=== PATIENT | female | born 1975 | race American Indian/Alaskan Native ===

== ENCOUNTER 2016-10-14 18:37 | Emergency (ER) | payer OTHER, BC ==
[2016-10-14 20:16] VITALS: BP 135/86
[2016-10-14] MEDS ORDERED: TYLENOL ONE (20:38)
[2016-10-14] MEDS ORDERED: TYLENOL PO ONE (20:51)
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
== END 2016-10-15 04:43 | disposition home or self-care (01) ==
LOC: ED 18:37
DX: R51 Headache (principal); V89.2XXA Person injured in unspecified motor-vehicle accident, traffic, initial encounter; Y93.89 Activity, other specified; Y99.9 Unspecified external cause status; Y92.410 Unspecified street and highway as the place of occurrence of the external cause
CPT/HCPCS: 70450; 72125

== ENCOUNTER 2020-05-21 17:16 | Observation (INO) | payer BC ==
[2020-05-21] MEDS ORDERED: ONDANSETRON 4 MG/2 ML INJ IV ONE (18:57)
[2020-05-21] MEDS ORDERED: PANTOPRAZOLE 40 MG INJ IV ONE (18:57)
[2020-05-21] MEDS ORDERED: SODIUM CHLORIDE 0.9% 1000 ML 1,000 ML IV ONE (18:57)
--- NOTE | 2020-05-21 19:01 | Emergency Department Report ---
ED GI Bleed HPI - General Chief complaint: Nausea/Vomiting/Diarrhea Stated complaint: NAUSEA/WEAK Time Seen by Provider: 05/21/20 18:57 Source: patient, EMS Mode of arrival: Wheelchair Limitations: No Limitations - History of Present Illness Initial comments: Chief complaint: Stomach pain bloody stools vomiting blood HPI: This is a 44-year-old female with history of hyperthyroidism and uterine fibroids who presents with stomach upset for last week. She has had dull central abdominal pain. She has been treating the pain with BC powder and acetaminophen. Patient today began vomiting. She had bloody emesis. Her children witnessed syncopal episode at home. Children called EMS. When she arrived here in the emergency department she had dark bloody stool observed by charge nurse. Triage nurse also noticed that patient had hypotension. Systolic blood pressure 60 mmHg upon standing. No history of GI bleed. However she has had vaginal bleeding for 4 weeks. She has hysterectomy scheduled in [facility]ations: Methimazole Propranolol Methoxyprogesterone Hydroxyzine complaint: gross hematemesis, gross hematochezia -: Gradual, days(s) (1) Severity scale (0 -10): 4 Quality: dull Consistency: intermittent Improves with: none Worsens with: none Context: medication/supplement use (BC powder, acetaminophen) Associated Symptoms: abdominal pain, nausea, vomiting, syncope - Related Data Home Medications Medication Instructions Recorded Confirmed Last Taken Methimazole [Tapazole] 05/21/20 Unknown propranoloL 05/21/20 Unknown Allergies Allergy/AdvReac Type Severity Reaction Status Date / Time No Known Allergies Allergy Verified 05/21/20 17:33 ED Review of Systems ROS: Stated complaint: NAUSEA/WEAK Other details as noted in HPI Comment: All other systems reviewed and negative Constitutional: denies: fever Respiratory: denies: cough, shortness of breath Cardiovascular: syncope. denies: chest pain Gastrointestinal: abdominal pain, nausea, vomiting, hematemesis, hematochezia ED Past Medical Hx - Past Medical History Previous Medical History?: Yes Additional medical history: THYROID / FIBROID - Surgical History Additional Surgical History: TUBAL LIGATION - Social History Smoking Status: Never Smoker Substance Use Type: None - Medications Home Medications: Home Medications Medication Instructions Recorded Confirmed Last Taken Type Methimazole [Tapazole] 05/21/20 Unknown History propranoloL 05/21/20 Unknown History ED Physical Exam - General Limitations: No Limitations General appearance: alert, in no apparent distress - Head Head exam: Present: atraumatic, normocephalic - Eye Eye exam: Present: normal appearance - ENT ENT exam: Present: mucous membranes moist - Neck Neck exam: Present: normal inspection, full ROM - Respiratory Respiratory exam: Present: normal lung sounds bilaterally. Absent: respiratory distress, wheezes, rales, rhonchi - Cardiovascular Cardiovascular Exam: Present: regular rate, normal rhythm, normal heart sounds. Absent: systolic murmur, diastolic murmur, rubs, gallop - GI/Abdominal GI/Abdominal exam: Present: soft, normal bowel sounds. Absent: distended, tenderness, guarding, rebound - Rectal Rectal exam: Present: heme (+) stool, other - Extremities Exam Extremities exam: Present: normal inspection - Neurological Exam Neurological exam: Present: alert, oriented X3 - Psychiatric Psychiatric exam: Present: normal affect, normal mood - Skin Skin exam: Present: warm, dry, intact, normal color. Absent: rash ED Course Vital Signs 05/21/20 05/21/20 05/21/20 17:36 18:18 18:49 Temperature 98.5 F 98.1 F Pulse Rate 83 91 H Respiratory 18 16 Rate Blood Pressure 97/70 Blood Pressure 75/51 [Right] O2 Sat by Pulse 100 100 96 Oximetry 05/21/20 05/21/20 05/21/20 19:00 19:30 20:00 Temperature Pulse Rate 75 81 69 Respiratory 17 18 12 Rate Blood Pressure 103/67 108/68 106/64 Blood Pressure [Right] O2 Sat by Pulse 91 100 82 L Oximetry 05/21/20 05/21/20 05/21/20 20:31 21:01 21:30 Temperature Pulse Rate 73 89 76 Respiratory 13 28 H 15 Rate Blood Pressure 106/64 106/64 105/63 Blood Pressure [Right] O2 Sat by Pulse 100 100 Oximetry 05/21/20 22:04 Temperature 98.7 F Pulse Rate 83 Respiratory 17 Rate Blood Pressure 105/63 Blood Pressure [Right] O2 Sat by Pulse 95 Oximetry ED Medical Decision Making - Lab Data Result diagrams: 05/21/20 19:13 05/21/20 19:13 - Medical Decision Making Clinical impression: Upper GI bleed with history of hematemesis. Melena on exam. Patient states that her normal hemoglobin is 11. Hemoglobin today is 7. Protonix bolus and infusion initiated in the emergency department. After consulting Dr. Sewell gastroenterology on-call, he recommended IV Reglan to be given now. He will arrange for emergent EGD. Dr. Sewell performed emergent EGD in the emergency department. He visualized several gastric ulcers and one large ulcer at the duodenal bulb. Fortunately he did not have to intervene on the lesions. Patient will be admitted to telemetry hospitalist service. Critical Care Time: Yes Critical care time in (mins) excluding proc time.: 50 Critical care attestation.: If time is entered above; I have spent that time in minutes in the direct care of this critically ill patient, excluding procedure time. 50 minutes of critical care time excluding procedures were used in the care of the patient. I came immediately to the bedside upon patient's arrival. Charge nurse came to me personally regarding patient's presentation. Patient had hy potension as well as orthostasis. I was concerned for hemorrhagic shock. I discussed treatment plan with the nursing team members. I reviewed electronic record. I kept the family members informed. Patient required multiple interventions and reassessments. I spoke with multiple consultants regarding her care including counter top assembler, geophysics teacher and hospitalist. ED Disposition Clinical Impression: Acute upper GI bleed, Peptic ulcer disease, Melena, Hematemesis, Anemia associated with acute blood loss, Orthostatic hypotension Disposition: OP ADMIT IP TO THIS HOSP Is pt being admited?: Yes Does the pt Need Aspirin: No Condition: Fair
[2020-05-21 19:40] LABS: Basophils # (Auto) 0.1 K/mm3 (0.0-0.1); Basophils % (Auto) 1.2 % (0.0-1.8); Eosinophils # (Auto) 0.1 K/mm3 (0.0-0.4); Eosinophils % (Auto) 1.1 % (0.0-4.3); Hematocrit 22.3 % (30.3-42.9); Lymphocytes # (Auto) 1.5 K/mm3 (1.2-5.4); Lymphocytes % (Auto) 18.6 % (13.4-35.0); Mean Corpuscular HGB Conc 31 % (30-34); Mean Corpuscular Volume 65 fl (79-97); Monocytes # (Auto) 0.4 K/mm3 (0.0-0.8); Platelet Count 281 K/mm3 (140-440); Red Blood Count 3.42 M/mm3 (3.65-5.03); Red Cell Distribution Width 20.8 % (13.2-15.2)
[2020-05-21 19:48] LABS: Alanine Aminotransferase 10 units/L (7-56); Albumin 3.9 g/dL (3.9-5); Blood Urea Nitrogen 23 mg/dL (7-17); Calcium 8.6 mg/dL (8.4-10.2); Hemolysis Index 0
[2020-05-21 19:51] LABS: BUN/Creatinine Ratio 46
[2020-05-21] MEDS ORDERED: METOCLOPRAMIDE 10 MG/2 ML INJ IV ONE (20:28)
--- NOTE | 2020-05-21 20:55 | Anesthesia Consultation ---
Anesthesia Consult and Med Hx Date of service: 05/21/20 - Airway Anesthetic Teeth Evaluation: Good ROM Head & Neck: Adequate Mental/Hyoid Distance: Adequate Mallampati Class: Class II Intubation Access Assessment: Probably Good - Pre-Operative Health Status ASA Pre-Surgery Classification: ASA3, Emergency - Pulmonary Hx Smoking: No Hx Asthma: No Hx Respiratory Symptoms: No SOB: No COPD: No Home Oxygen Therapy: No Hx Pneumonia: No Hx Sleep Apnea: No - Cardiovascular System Hx Hypertension: Yes Hx Coronary Artery Disease: No Hx Heart Attack/AMI: No Hx Angina: No Hx Percutaneous Transluminal Coronary Angioplasty (PTCA): No Hx Cardia Arrhythmia: Yes (States "I dont know which arrhythmia") Hx Pacemaker: No Hx Internal Defibrillator: No Hx Valvular Heart Disease: No Hx Heart Murmur: No Hx Peripheral Vascular Disease: No - Central Nervous System Hx Neuromuscular Disorder: No Hx Seizures: No CVA: No Hx Back Pain: No Hx Psychiatric Problems: Yes (anexity) - Gastrointestinal Hx Ulcer: Yes Hx Gastroesophageal Reflux Disease: Yes - Endocrine Hx Renal Disease: No Hx End Stage Renal Disease: No Hx Cirrhosis: No Hx Liver Disease: No Hx Insulin Dependent Diabetes: No Hx Non-Insulin Dependent Diabetes: No Hx Thyroid Disease: No Hx Hypothyroidism: No Hx Hyperthyroidism: Yes - Hematic Hx Anemia: Yes Hx Sickle Cell Disease: No - Other Systems Hx Alcohol Use: Yes (occ.) Hx Substance Use: No Hx Cancer: No Hx Obesity: No
--- NOTE | 2020-05-21 20:58 | Anesthesia Day of Surgery ---
Anesthesia Day of Surgery - Day of Surgery Patient Examined: Yes Patient H&P Reviewed: Yes Patient is NPO: Yes
[2020-05-21] MEDS: PANTOPRAZOLE 80 MG in SODIUM CHLORIDE 0.9% 100 ML IV SCH (21:16)
[2020-05-21] MEDS ORDERED: SODIUM CHLORIDE 0.9% 1000 ML 1,000 ML IV SCH (21:30)
[2020-05-21] MEDS ORDERED: WATER FOR IRRIG STERILE 250 ML BOTTLE IR ONE (21:34)
--- NOTE | 2020-05-21 21:58 | Gastroenterology Consultation ---
History of Present Illness - Reason for Consult Consult date: 05/21/20 GI bleed Requesting physician: HENRY PARSONS - History of Present Illness Pleasant 44 yo female presents with hematemesis and melena and orthostatic near syncope Patient reports for last week she has been having epigastric abdominal pain the pain is moderate intermittent cramping worse with eating better with Goody powder which she only started taking after she developed the abdominal pain She reports after eating yesterday she felt sick in her stomach and forces soft throughout there was some retching involved Then she reports today having multiple episodes of hematemesis as well as a lar ge melanotic bowel movement. She reports she then came to the emergency room when they transferred her from the bed to a chair she became very lightheaded and almost passed out She is on beta-blockers She does not take blood thinners No personal or family history of gastric ulcers Her daughter is currently 2 doors down in the ER with pseudoseizures, patient reports excessive stress from this as it is been going on for years Obtained/updated/reviewed patient's current medications Past History Past Medical History: other (fibroids, hyperthyroidism) Past Surgical History: No surgical history, Other (tubal ligation) Social history: no significant social history Family history: no significant family history (no known FH gastric ulcer of CA, no FH CRC) Medications and Allergies Allergies Allergy/AdvReac Type Severity Reaction Status Date / Time No Known Allergies Allergy Verified 05/21/20 17:33 Home Medications Medication Instructions Recorded Confirmed Last Taken Type Methimazole [Tapazole] 05/21/20 Unknown History propranoloL 05/21/20 Unknown History Active Meds: Active Medications Pantoprazole Sodium 80 mg/ (Sodium Chloride) 100 mls @ 10 mls/hr IV DIRECT RAJENDRA Last Admin: 05/21/20 21:16 Dose: 8 mg/hr, 10 mls/hr Documented by: Sodium Chloride (Nacl 0.9% 1000 Ml) 1,000 mls @ 50 mls/hr IV DIRECT RAJENDRA Review of Systems - Review of Systems All systems: negative (10 systems reviewed and negative except as mentioned in the HPI) Exam - Constitutional Vital Signs: Temp Pulse Resp BP Pulse Ox 98.1 F 76 15 105/63 100 05/21/20 18:18 05/21/20 21:30 05/21/20 21:30 05/21/20 21:30 05/21/20 21:01 General appearance: no acute distress - EENT Eyes: EOM intact ENT: hearing intact - Neck Neck: supple - Respiratory Respiratory effort: normal - Cardiovascular Rhythm: regular - Gastrointestinal General gastrointestinal: Present: soft - Integumentary Integumentary: Present: dry - Musculoskeletal Musculoskeletal: normal - Neurologic Neurological: alert and oriented x3 - Psychiatric Psychiatric: appropriate mood/affect - Labs CBC & Chem 7: 05/21/20 19:13 05/21/20 19:13 Lab Results: Laboratory Results - last 24 hr 05/21/20 05/21/20 05/21/20 19:13 19:13 19:13 WBC 8.3 RBC 3.42 L Hgb 7.0 L Hct 22.3 L MCV 65 L MCH 20 L MCHC 31 RDW 20.8 H Plt Count 281 Lymph % (Auto) 18.6 [place] % (Auto) 5.0 Eos % (Auto) 1.1 Baso % (Auto) 1.2 Lymph # (Auto) 1.5 [place] # (Auto) 0.4 Eos # (Auto) 0.1 Baso # (Auto) 0.1 Seg Neutrophils % 74.1 H Seg Neutrophils # 6.1 Sodium 135 L Potassium 4.3 Chloride 103.3 Carbon Dioxide 21 L Anion Gap 15 BUN 23 H Creatinine 0.5 L Estimated GFR > 60 BUN/Creatinine Ratio 46 Glucose 124 H Calcium 8.6 Total Bilirubin 0.20 AST 16 ALT 10 Alkaline Phosphatase 90 Total Protein 7.2 Albumin 3.9 Albumin/Globulin Ratio 1.2 Lipase 31 HCG, Qual Negative Blood Type Antibody Screen 05/21/20 20:15 WBC RBC Hgb Hct MCV MCH MCHC RDW Plt Count Lymph % (Auto) [place] % (Auto) Eos % (Auto) Baso % (Auto) Lymph # (Auto) [place] # (Auto) Eos # (Auto) Baso # (Auto) Seg Neutrophils % Seg Neutrophils # Sodium Potassium Chloride Carbon Dioxide Anion Gap BUN Creatinine Estimated GFR BUN/Creatinine Ratio Glucose Calcium Total Bilirubin AST ALT Alkaline Phosphatase Total Protein Albumin Albumin/Globulin Ratio Lipase HCG, Qual Blood Type O POSITIVE Antibody Screen Negative Assessment and Plan Highest on the differential diagnosis is UGI bleed due to PUD followed by Andreina - Mendez, AVM, Dieulafoy's,etc Patient with hemodynamic instability (significant orthostatic hypotension), major drop in Hgb, overt hematemesis and melena, elevated BUN, all concerning for active GI bleed. Therefore will proceed with emergent EGD for further management. In meantime Protonix bolus and drip, reglan IV x 1 dose to enhance visualization of the stomach - Patient Problems (1) Melena Current Visit: Yes Status: Acute (2) Hematemesis Current Visit: Yes Status: Acute (3) Anemia associated with acute blood loss Current Visit: Yes Status: Acute (4) Orthostatic hypotension Current Visit: Yes Status: Acute (5) Acute upper GI bleed Current Visit: Yes Status: Acute
[2020-05-21] MEDS ORDERED: propofoL 200 MG/20 ML VIAL IV ONE ×2 (22:10)
--- NOTE | 2020-05-21 22:47 | Operative Report ---
Operative Report Operative Report: DOS: 05/21/2020 SURGEON: Bernardino Sewell MD EGD REPORT PREOPERATIVE DIAGNOSIS and POSTOPERATIVE DIAGNOSIS: GI bleed ESTIMATED BLOOD LOSS: None DESCRIPTION OF PROCEDURE: A high-resolution EGD scope was passed through the oropharynx, esophagus, stomach, and second portion of duodenum. The scope was carefully withdrawn. Retroflexion was performed in the stomach. At the end of the procedure, the scope was cleaned using normal technique. Vital signs monitored continuously throughout. SEDATION: Provided by Anesthesiology Services. COMPLICATIONS: None. FINDINGS: * Normal second portion of the duodenum * Large 1 cm ulcer in the anterior portion of the duodenal bulb, red pigmented spot however no high risk stigmata seen. No active bleeding * 3 very small superficial clean-based gastric ulcers in the prepyloric antrum * Mild gastritis in the entire stomach with mild diffuse erythema * 2 cm hiatal hernia * GE junction 35 cm from incisors * Remainder of exam was otherwise unremarkable RECOMMENDATIONS: * Clear liquid diet and advance as tolerated starting tomorrow * Repeat hemoglobin now and tomorrow morning, transfuse as needed for goal hemoglobin of 7 * Continue PPI drip until Friday at which point patient can be discharged with Protonix 40 mg p.o. twice daily as long as no further bleeding occurs * Avoid NSAIDs * Patient will need to follow-up as an outpatient for H. pylori testing and consideration of repeat EGD to ensure healing of the ulcers
[2020-05-21] MEDS ORDERED: ONDANSETRON 4 MG/2 ML INJ IV PRN (23:13)
[2020-05-21] MEDS ORDERED: MORPHINE 2 MG/1 ML INJ IV PRN (23:13)
--- NOTE | 2020-05-21 23:21 | History and Physical Report ---
History of Present Illness Date of examination: 05/21/20 Date of admission: 05/21/2020 Chief complaint: Nausea and Vomiting Hematemesis Syncope History of present illness: 44-year-old -Finnish female with known history of uterine fibroid and hypothyroidism presenting to the emergency room today complaining of nausea and vomiting, hematemesis and melena for about 1 week. Patient also indicates that she has been having some upper abdominal pain for about a week she has been using some Goody powder and acetaminophen for the pain. She has been having multiple episodes of nausea and vomiting today and was said to have had a syncopal episode at home. She indicates she just returned from [place] within the last 24 hours and denies any sick contacts, no contact with anyone with COVID-19. She has been having some melena and she also indicates that she has been having some vaginal bleeding for some time for which she is scheduled for hysterectomy sometime in a couple of weeks at [facility]. Upon arrival in the emergency room today she was found to be hypotensive with systolic blood pressure in the 60s. She was also found to be orthostatic. Patient was given IV fluid with significant improvement. Work-up in the emergency room today reveals a hemoglobin of 7.0. In House Counsel Dr. Sewell has been consulted patient will be immediately scheduled for EGD. Patient has also been commenced on proton pump inhibitor. Blood transfusion not recommended at this time. However CBC is being monitored. Past History Past Medical History: anemia, other (fibroids, hyperthyroidism) Past Surgical History: No surgical history, Other (tubal ligation) Social history: no significant social history (Occasional alcohol), alcohol abuse Family history: cancer (Pnceatic Ca. in Grand father), diabetes (Mother), hypertension (mother), other (H/O seizures in Mother) Medications and Allergies Allergies Allergy/AdvReac Type Severity Reaction Status Date / Time No Known Allergies Allergy Verified 05/21/20 17:33 Home Medications Medication Instructions Recorded Confirmed Last Taken Type Methimazole [Tapazole] 10 mg PO DAILY 05/21/20 05/22/20 Unknown History propranoloL [Inderal] 40 mg PO DAILY 05/21/20 05/22/20 Unknown History Active Meds: Active Medications Pantoprazole Sodium 80 mg/ (Sodium Chloride) 100 mls @ 10 mls/hr IV DIRECT RAJENDRA Last Admin: 05/21/20 21:16 Dose: 8 mg/hr, 10 mls/hr Documented by: Sodium Chloride (Nacl 0.9% 1000 Ml) 1,000 mls @ 50 mls/hr IV DIRECT RAJENDRA Review of Systems Constitutional: no fever, no chills Ears, nose, mouth and throat: no nasal congestion, no sore throat Cardiovascular: no chest pain, no palpitations Respiratory: no cough, no shortness of breath Gastrointestinal: abdominal pain, nausea, vomiting, hematemesis, melena, no diarrhea Genitourinary Female: no pelvic pain, no flank pain, no dysuria, no hematuria Musculoskeletal: no neck pain, no low back pain Integumentary: no rash, no pruritis Neurological: syncope, no headaches, no confusion Psychiatric: no anxiety, no depression Exam - Constitutional Vitals: Temp Pulse Resp BP Pulse Ox 98.7 F 112 H 21 114/62 100 05/21/20 22:04 05/21/20 22:30 05/21/20 22:30 05/21/20 22:30 05/21/20 22:30 General appearance: Present: no acute distress, well-nourished, other (Moderately pale) - EENT Eyes: Present: PERRL, EOM intact. Absent: scleral icterus ENT: hearing intact, clear oral mucosa, dentition normal - Neck Neck: Present: supple, normal ROM - Respiratory Respiratory effort: normal Respiratory: bilateral: CTA - Cardiovascular Rhythm: regular Heart Sounds: Present: S1 & S2. Absent: gallop, systolic murmur, diastolic murmur, rub - Extremities Extremities: no ischemia, pulses intact, pulses symmetrical, No edema, Full ROM Peripheral Pulses: within normal limits - Abdominal General gastrointestinal: Present: soft, non-tender, non-distended, normal bowel sounds, mass (Uterine Mass ) - Integumentary Integumentary: Present: clear, warm, dry. Absent: rash - Musculoskeletal Musculoskeletal: strength equal bilaterally - Psychiatric Psychiatric: appropriate mood/affect, intact judgment & insight, memory intact, cooperative - Neurologic Neurologic: CNII-XII intact, no focal deficits, moves all extremities Results - Labs CBC & Chem 7: 05/21/20 23:04 05/21/20 19:13 Labs: Abnormal lab results 05/21/20 05/21/20 Range/Units 19:13 19:13 RBC 3.42 L (3.65-5.03) M/mm3 Hgb 7.0 L (10.1-14.3) gm/dl Hct 22.3 L (30.3-42.9) % MCV 65 L (79-97) fl MCH 20 L (28-32) pg RDW 20.8 H (13.2-15.2) % Seg Neutrophils % 74.1 H (40.0-70.0) % Sodium 135 L (137-145) mmol/L Carbon Dioxide 21 L (22-30) mmol/L BUN 23 H (7-17) mg/dL Creatinine 0.5 L (0.6-1.2) mg/dL Glucose 124 H (65-100) mg/dL Assessment and Plan - Patient Problems (1) Acute upper GI bleed Current Visit: Yes Status: Acute Plan to address problem: EGD done by automotive wholesale parts advisor reveals gastric ulcers. Patient placed on proton pump inhibitor. (2) Anemia associated with acute blood loss Current Visit: Yes Status: Acute Plan to address problem: Will monitor CBC and patient will be transfused as needed. (3) Hypotension Current Visit: Yes Status: Acute Plan to address problem: Possibly secondary to volume loss. We will monitor vital signs closely. (4) DVT prophylaxis Current Visit: Yes Status: Acute Plan to address problem: Patient placed on sequential compression device. (5) Full code status Current Visit: Yes Status: Acute
[2020-05-21 23:38] LABS: Hematocrit 20.8 % (30.3-42.9); Hemoglobin 6.2 gm/dl (10.1-14.3)
[2020-05-22] MEDS: SODIUM CHLORIDE 0.9% 1000 ML 1,000 ML IV SCH ×2 (02:40→12:50)
[2020-05-22] MEDS ORDERED: SODIUM CHLORIDE 0.9% 500 ML 500 ML IV ONE (04:04)
[2020-05-22 05:27] LABS: Mean Corpuscular HGB Conc 31 % (30-34); Platelet Count 200 K/mm3 (140-440); Red Blood Count 2.88 M/mm3 (3.65-5.03)
[2020-05-22 05:30] LABS: Mean Corpuscular Volume 65 fl (79-97); Red Cell Distribution Width 20.5 % (13.2-15.2)
[2020-05-22 05:31] LABS: Basophils % (Auto) 0.7 % (0.0-1.8); Eosinophils # (Auto) 0.1 K/mm3 (0.0-0.4); Eosinophils % (Auto) 1.3 % (0.0-4.3); Lymphocytes # (Auto) 2.2 K/mm3 (1.2-5.4); Monocytes # (Auto) 0.5 K/mm3 (0.0-0.8); Monocytes % (Auto) 7.2 % (0.0-7.3)
[2020-05-22 05:34] LABS: Hematocrit 18.8 % (30.3-42.9); Hemoglobin 5.8 gm/dl (10.1-14.3)
[2020-05-22 05:38] LABS: INR 1.12 (0.87-1.13)
[2020-05-22 05:48] LABS: Blood Urea Nitrogen 20 mg/dL (7-17); Calcium 8.2 mg/dL (8.4-10.2); Hemolysis Index 0
[2020-05-22 06:05] LABS: BUN/Creatinine Ratio 40
--- NOTE | 2020-05-22 11:19 | Gastroenterology Progress Note ---
Assessment and Plan Patient without any overt clinical bleeding since the upper endoscopy last night. Hemoglobin did drop, suspect it was equilibration rather than evidence of new bleeding. Therefore, continue Protonix drip through tomorrow, start patient on clear liquid diet and advance as tolerated, transfuse for goal hemoglobin of 7. Long-term avoidance of NSAIDs On discharge patient should go home with Protonix 40 mg p.o. twice daily and outpatient follow-up with me in 2 to 4 weeks - Patient Problems (1) Melena Current Visit: Yes Status: Acute (2) Hematemesis Current Visit: Yes Status: Acute (3) Anemia associated with acute blood loss Current Visit: Yes Status: Acute (4) Orthostatic hypotension Current Visit: Yes Status: Acute (5) Acute upper GI bleed Current Visit: Yes Status: Acute Subjective Date of service: 05/22/20 Principal diagnosis: GI bleed Objective - Constitutional Vitals: Temp Pulse Resp BP Pulse Ox 97.4 F L 82 20 105/65 99 05/22/20 09:53 05/22/20 09:53 05/22/20 09:53 05/22/20 09:53 05/22/20 09:53 General appearance: no acute distress - EENT Eyes: EOM intact ENT: hearing intact - Respiratory Respiratory effort: normal - Gastrointestinal General gastrointestinal: Present: soft, non-tender - Labs CBC & Chem 7: 05/22/20 05:10 05/22/20 05:10 Labs: Laboratory Results - last 24 hr 05/21/20 05/21/20 05/21/20 19:13 19:13 19:13 WBC 8.3 RBC 3.42 L Hgb 7.0 L Hct 22.3 L MCV 65 L MCH 20 L MCHC 31 RDW 20.8 H Plt Count 281 Lymph % (Auto) 18.6 [place] % (Auto) 5.0 Eos % (Auto) 1.1 Baso % (Auto) 1.2 Lymph # (Auto) 1.5 [place] # (Auto) 0.4 Eos # (Auto) 0.1 Baso # (Auto) 0.1 Seg Neutrophils % 74.1 H Seg Neutrophils # 6.1 PT INR Sodium 135 L Potassium 4.3 Chloride 103.3 Carbon Dioxide 21 L Anion Gap 15 BUN 23 H Creatinine 0.5 L Estimated GFR > 60 BUN/Creatinine Ratio 46 Glucose 124 H Calcium 8.6 Total Bilirubin 0.20 AST 16 ALT 10 Alkaline Phosphatase 90 Total Protein 7.2 Albumin 3.9 Albumin/Globulin Ratio 1.2 Lipase 31 HCG, Qual Negative Blood Type Antibody Screen Crossmatch 05/21/20 05/21/20 05/22/20 20:15 23:04 05:10 WBC 6.2 RBC 2.88 L Hgb 6.2 L 5.8 L* Hct 20.8 L 18.8 L* MCV 65 L MCH 20 L MCHC 31 RDW 20.5 H Plt Count 200 Lymph % (Auto) 36.0 H [place] % (Auto) 7.2 Eos % (Auto) 1.3 Baso % (Auto) 0.7 Lymph # (Auto) 2.2 [place] # (Auto) 0.5 Eos # (Auto) 0.1 Baso # (Auto) 0.0 Seg Neutrophils % 54.8 Seg Neutrophils # 3.4 PT INR Sodium Potassium Chloride Carbon Dioxide Anion Gap BUN Creatinine Estimated GFR BUN/Creatinine Ratio Glucose Calcium Total Bilirubin AST ALT Alkaline Phosphatase Total Protein Albumin Albumin/Globulin Ratio Lipase HCG, Qual Blood Type O POSITIVE Antibody Screen Negative Crossmatch See Detail 05/22/20 05/22/20 05:10 05:10 WBC RBC Hgb Hct MCV MCH MCHC RDW Plt Count Lymph % (Auto) [place] % (Auto) Eos % (Auto) Baso % (Auto) Lymph # (Auto) [place] # (Auto) Eos # (Auto) Baso # (Auto) Seg Neutrophils % Seg Neutrophils # PT 14.6 INR 1.12 Sodium 141 Potassium 3.9 Chloride 110.3 H Carbon Dioxide 21 L Anion Gap 14 BUN 20 H Creatinine 0.5 L Estimated GFR > 60 BUN/Creatinine Ratio 40 Glucose 96 Calcium 8.2 L Total Bilirubin AST ALT Alkaline Phosphatase Total Protein Albumin Albumin/Globulin Ratio Lipase HCG, Qual Blood Type Antibody Screen Crossmatch
[2020-05-22] MEDS: PANTOPRAZOLE 80 MG in SODIUM CHLORIDE 0.9% 100 ML IV SCH (12:49)
[2020-05-22] MEDS ORDERED: SODIUM CHLORIDE 0.9% 500 ML 500 ML IV NR (15:35)
--- NOTE | 2020-05-22 15:39 | Progress Note ---
Assessment and Plan - Patient Problems (1) Acute upper GI bleed Current Visit: Yes Status: Acute Plan to address problem: EGD done by director of occupational therapy reveals gastric ulcers. Patient placed on proton pump inhibitor. Patient to be transfused 2 units of packed red blood cells Continue Protonix drip If stable discharge tomorrow (2) Anemia associated with acute blood loss Current Visit: Yes Status: Acute Plan to address problem: Will monitor CBC and patient will be transfused as needed. Transfuse as necessary Transfused 2 units of packed red blood cells (3) Hypotension Current Visit: Yes Status: Acute Plan to address problem: Possibly secondary to volume loss. We will monitor vital signs closely. Hypotension improved (4) DVT prophylaxis Current Visit: Yes Status: Acute Plan to address problem: Patient placed on sequential compression device. (5) Full code status Current Visit: Yes Status: Acute Discharge planning issues Patient will discharge tomorrow if no further bleeding and hemoglobin is stable Patient to be discharged on Protonix 40 mg twice a day Patient also counseled about not taking any NSAIDs, BC powders, Goody powders and aspirin. Subjective Date of service: 05/22/20 Principal diagnosis: GI bleed Interval history: 44-year-old -Greenlandic female with known history of uterine fibroid and hypothyroidism presenting to the emergency room today complaining of nausea and vomiting, hematemesis and melena for about 1 week. Patient also indicates that she has been having some upper abdominal pain for about a week she has been using some Goody powder and acetaminophen for the pain. She has been having multiple episodes of nausea and vomiting today and was said to have had a syncopal episode at home. She indicates she just returned from [place] within the last 24 hours and denies any sick contacts, no contact with anyone with COVID-19. She has been having some melena and she also indicates that she has been having some vaginal bleeding for some time for which she is scheduled for hysterectomy sometime in a couple of weeks at [facility]. Upon arrival in the emergency room today she was found to be hypotensive with systolic blood pressure in the 60s. She was also found to be orthostatic. Patient was given IV fluid with significant improvement. Work-up in the emergency room today reveals a hemoglobin of 7.0. Meter Maker Dr. Sewell has been consulted patient will be immediately scheduled for EGD. Patient has also been commenced on proton pump inhibitor. Blood transfusion not recommended at this time. However CBC is being monitored. Hemoglobin dropped down to 5.8-patient to be transfused 2 units of packed red blood cells- No further hematemesis Had EGD Objective - Constitutional Vitals: Vital Signs - 12hr 05/22/20 05/22/20 05/22/20 06:00 06:32 06:46 Temperature 98.9 F 97.5 F L Pulse Rate 79 89 88 Respiratory 20 18 18 Rate Blood Pressure 99/46 108/65 108/65 O2 Sat by Pulse 97 99 97 Oximetry 05/22/20 05/22/20 05/22/20 06:52 06:58 07:30 Temperature 97.5 F L 97.2 F L 97.8 F Pulse Rate 85 81 80 Respiratory 18 18 20 Rate Blood Pressure 115/65 106/65 101/61 O2 Sat by Pulse 99 99 Oximetry 05/22/20 05/22/20 05/22/20 08:00 08:30 09:00 Temperature 97.6 F 97.6 F 97.5 F L Pulse Rate 79 89 72 Respiratory 20 20 20 Rate Blood Pressure 115/65 104/65 106/66 O2 Sat by Pulse 100 99 100 Oximetry 05/22/20 05/22/20 05/22/20 09:46 09:53 11:26 Temperature 97.4 F L 98.9 F Pulse Rate 82 83 Respiratory 20 18 Rate Blood Pressure 104/65 105/65 112/65 O2 Sat by Pulse 99 100 Oximetry General appearance: Present: no acute distress, well-nourished - EENT Eyes: PERRL, EOM intact ENT: hearing intact, clear oral mucosa, other (Pale mucous membranes) Ears: bilateral: normal - Neck Neck: supple, normal ROM - Respiratory Respiratory effort: normal Respiratory: bilateral: CTA - Breasts Breasts: normal - Cardiovascular Heart rate: 78 Rhythm: regular Heart Sounds: Present: S1 & S2. Absent: gallop, rub Extremities: pulses intact, No edema, normal color, Full ROM - Gastrointestinal General gastrointestinal: Present: soft, non-tender, non-distended, normal bowel sounds - Genitourinary Female genitourinary: normal - Integumentary Integumentary: clear, warm, dry - Musculoskeletal Musculoskeletal: 1, strength equal bilaterally - Neurologic Neurologic: moves all extremities - Psychiatric Psychiatric: memory intact, appropriate mood/affect, intact judgment & insight - Allied health notes Allied health notes reviewed: nursing, case management - Labs CBC & Chem 7: 05/22/20 05:10 05/22/20 05:10 Labs: Abnormal lab results 05/21/20 05/21/20 05/21/20 Range/Units 19:13 19:13 20:15 RBC 3.42 L (3.65-5.03) M/mm3 Hgb 7.0 L (10.1-14.3) gm/dl Hct 22.3 L (30.3-42.9) % MCV 65 L (79-97) fl MCH 20 L (28-32) pg RDW 20.8 H (13.2-15.2) % Lymph % (Auto) (13.4-35.0) % Seg Neutrophils % 74.1 H (40.0-70.0) % Sodium 135 L (137-145) mmol/L Chloride (98-107) mmol/L Carbon Dioxide 21 L (22-30) mmol/L BUN 23 H (7-17) mg/dL Creatinine 0.5 L (0.6-1.2) mg/dL Glucose 124 H (65-100) mg/dL Calcium (8.4-10.2) mg/dL Crossmatch See Detail 05/21/20 05/22/20 05/22/20 Range/Units 23:04 05:10 05:10 RBC 2.88 L (3.65-5.03) M/mm3 Hgb 6.2 L 5.8 L* (10.1-14.3) gm/dl Hct 20.8 L 18.8 L* (30.3-42.9) % MCV 65 L (79-97) fl MCH 20 L (28-32) pg RDW 20.5 H (13.2-15.2) % Lymph % (Auto) 36.0 H (13.4-35.0) % Seg Neutrophils % (40.0-70.0) % Sodium (137-145) mmol/L Chloride 110.3 H (98-107) mmol/L Carbon Dioxide 21 L (22-30) mmol/L BUN 20 H (7-17) mg/dL Creatinine 0.5 L (0.6-1.2) mg/dL Glucose (65-100) mg/dL Calcium 8.2 L (8.4-10.2) mg/dL Crossmatch
[2020-05-22] MEDS ORDERED: SODIUM CHLORIDE 0.9% 500 ML 500 ML IV SCH (16:30)
[2020-05-22 23:08] LABS: Hemoglobin 7.6 gm/dl (10.1-14.3); Mean Corpuscular HGB Conc 32 % (30-34); Mean Corpuscular Volume 72 fl (79-97); Platelet Count 214 K/mm3 (140-440); Red Blood Count 3.36 M/mm3 (3.65-5.03)
[2020-05-22 23:13] LABS: Red Cell Distribution Width 25.2 % (13.2-15.2)
[2020-05-23 01:41] LABS: Anisocytosis 2+; Total Cells Counted 100
[2020-05-23 01:42] LABS: Hypochromasia 1+
--- NOTE | 2020-05-23 09:04 | Gastroenterology Progress Note ---
Assessment and Plan Patient with single small BM this morning, suspect more likely that is the rest of the old blood moving through her GI tract rather than a new rebleed. However, out of an abundance of caution will recommend repeat hemoglobin this morning. As long as the CBC remains stable she can be discharged home with Protonix 40 mg p.o. twice daily and outpatient follow-up with me in 2 to 4 weeks Long-term avoidance of NSAIDs However, if the hemoglobin drops significantly I will likely need to rescope - Patient Problems (1) Melena Current Visit: Yes Status: Acute (2) Hematemesis Current Visit: Yes Status: Acute (3) Anemia associated with acute blood loss Current Visit: Yes Status: Acute (4) Orthostatic hypotension Current Visit: Yes Status: Acute (5) Acute upper GI bleed Current Visit: Yes Status: Acute Subjective Date of service: 05/23/20 Principal diagnosis: GI bleed Interval history: Patient reports feeling okay, energy starting to return. She reports had small BM that was black early this morning though she reports no bowel movements all day yesterday She got her second unit of blood last night, she reports the posttransfusion CBC was done around the time the second of blood finished Objective - Constitutional Vitals: Temp Pulse Resp BP Pulse Ox 98.6 F 88 18 128/79 100 05/23/20 05:47 05/23/20 05:47 05/23/20 05:47 05/23/20 05:47 05/22/20 16:20 General appearance: no acute distress - EENT Eyes: EOM intact ENT: hearing intact - Respiratory Respiratory effort: normal - Gastrointestinal General gastrointestinal: Present: soft, other (NTND upper abd (tenderness with fullness in lower abd from fibroids)) - Labs CBC & Chem 7: 05/22/20 22:40 05/22/20 05:10 Labs: Laboratory Results - last 24 hr 05/21/20 05/22/20 20:15 22:40 WBC 7.2 RBC 3.36 L Hgb 7.6 L Hct 24.0 L MCV 72 L MCH 23 L MCHC 32 RDW 25.2 H Plt Count 214 Add Manual Diff Complete Total Counted 100 Seg Neuts % (Manual) 56.0 Band Neutrophils % 0 Lymphocytes % (Manual) 31.0 Reactive Lymphs % (Man) 0 Monocytes % (Manual) 10.0 H Eosinophils % (Manual) 2.0 Basophils % (Manual) 1.0 Metamyelocytes % 0 Myelocytes % 0 Promyelocytes % 0 Blast Cells % 0 Nucleated RBC % Not Reportable Seg Neutrophils # Man 4.0 Band Neutrophils # 0.0 Lymphocytes # (Manual) 2.2 Abs React Lymphs (Man) 0.0 Monocytes # (Manual) 0.7 Eosinophils # (Manual) 0.1 Basophils # (Manual) 0.1 Metamyelocytes # 0.0 Myelocytes # 0.0 Promyelocytes # 0.0 Blast Cells # 0.0 WBC Morphology Not Reportable Hypersegmented Neuts Not Reportable Hyposegmented Neuts Not Reportable Hypogranular Neuts Not Reportable Smudge Cells Not Reportable Toxic Granulation Not Reportable Toxic Vacuolation Not Reportable Dohle Bodies Not Reportable Pelger-Huet Anomaly Not Reportable Анна Rods Not Reportable Platelet Estimate Not Reportable Clumped Platelets Not Reportable Plt Clumps, EDTA Not Reportable Large Platelets Not Reportable Giant Platelets Not Reportable Platelet Satelliting Not Reportable Plt Morphology Comment Not Reportable RBC Morphology Not Reportable Dimorphic RBCs Not Reportable Polychromasia Not Reportable Hypochromasia 1+ Poikilocytosis Not Reportable Anisocytosis 2+ Microcytosis Few Macrocytosis Not Reportable Spherocytes Not Reportable Pappenheimer Bodies Not Reportable Sickle Cells Not Reportable Target Cells Not Reportable Tear Drop Cells Not Reportable Ovalocytes Not Reportable Helmet Cells Not Reportable Mendieta-Rake Bodies Not Reportable Box Elder Rings Not Reportable Angi Cells Not Reportable Bite Cells Not Reportable Crenated Cell Not Reportable Elliptocytes Not Reportable Acanthocytes (Spur) Not Reportable Rouleaux Not Reportable Hemoglobin C Crystals Not Reportable Schistocytes Not Reportable Malaria parasites Not Reportable Thanh Bodies Not Reportable Hem Pathologist Commnt No Blood Type O POSITIVE Antibody Screen Negative Crossmatch See Detail
[2020-05-23 11:29] LABS: Hemoglobin 7.5 gm/dl (10.1-14.3)
--- NOTE | 2020-05-23 12:02 | Discharge Summary ---
Providers - Providers Date of Admission: 05/21/20 23:13 Date of discharge: 05/23/20 Attending physician: RAVINDRA SALGUERO 05/21/20 20:21 Consult to Physician [CONS] Stat Comment: Consulting Provider: IREEN LUONG Physician Instructions: Reason For Exam: ugib Primary care physician: VINYL HANGER Hospitalization Condition: Fair Hospital course: 44-year-old -Mosoth[place] female with known history of uterine fibroid and hypothyroidism presenting to the emergency room today complaining of nausea and vomiting, hematemesis and melena for about 1 week. Patient also indicates that she has been having some upper abdominal pain for about a week she has been using some Goody powder and acetaminophen for the pain. She has been having multiple episodes of nausea and vomiting today and was said to have had a syncopal episode at home. She indicates she just returned from [place] within the last 24 hours and denies any sick contacts, no contact with anyone with COVID-19. She has been having some melena and she also indicates that she has been having some vaginal bleeding for some time for which she is scheduled for hysterectomy sometime in a couple of weeks at [facility]. Upon arrival in the emergency room today she was found to be hypotensive with systolic blood pressure in the 60s. She was also found to be orthostatic. Patient was given IV fluid with significant improvement. Work-up in the emergency room today reveals a hemoglobin of 7.0. Sales Associate Cashier Dr. Luong has been consulted patient will be immediately scheduled for EGD. Patient has also been commenced on proton pump inhibitor. Blood transfusion not recommended at this time. However CBC is being monitored. Hemoglobin dropped down to 5.8-patient to be transfused 2 units of packed red blood cells. Patient had an EGD performed that showed gastric ulcers, duodenal ulcer and gastritis with no active bleeding. Patient's hemoglobin remained stable after transfusion and hemoglobin on the day of discharge is 7.5. Patient will continue pantoprazole 40 mg twice daily. She will follow up with GI in the office in 2-4 weeks. Patient has been advised to stop taking any NSAIDs or medications containing aspirin for now. She agrees with management. She is currently stable to be discharged today Disposition: TO HOME OR SELFCARE - Discharge Diagnoses (1) Acute upper GI bleed Status: Acute (2) Anemia associated with acute blood loss Status: Acute (3) Hypotension Status: Acute Core Measure Documentation - Palliative Care Palliative Care/ Comfort Measures: Not Applicable - Core Measures Any of the following diagnoses?: none Exam - Constitutional Vitals: Temp Pulse Resp BP Pulse Ox 98.6 F 88 18 128/79 100 05/23/20 05:47 05/23/20 05:47 05/23/20 05:47 05/23/20 05:47 05/22/20 16:20 General appearance: Present: no acute distress, well-nourished - EENT Eyes: Present: PERRL ENT: hearing intact, clear oral mucosa - Neck Neck: Present: supple, normal ROM - Respiratory Respiratory effort: normal Respiratory: bilateral: CTA - Cardiovascular Heart Sounds: Present: S1 & S2. Absent: rub, click - Extremities Extremities: pulses symmetrical, No edema Peripheral Pulses: within normal limits - Abdominal General gastrointestinal: Present: soft, non-tender, non-distended, normal bowel sounds Female genitourinary: Present: normal - Integumentary Integumentary: Present: clear, warm, dry - Musculoskeletal Musculoskeletal: gait normal, strength equal bilaterally - Psychiatric Psychiatric: appropriate mood/affect, intact judgment & insight - Neurologic Neurologic: CNII-XII intact, moves all extremities Plan Additional Instructions: Continue pantoprazole 40 mg twice a day. Follow-up with GI in the office in 2 to 4 weeks. No NSAIDs [ibuprofen, naproxen or Advil] or any medication containing aspirin for now Follow up with: MINA SELLERS MD [Primary Care Provider] - 7 Days IRENE LUONG MD [Staff Physician] - 7 Days Prescriptions: Pantoprazole [Protonix TAB] 40 mg PO BID #60 tablet
[2020-05-23 12:47] VITALS: BP 126/73
== END 2020-05-23 15:10 | disposition home or self-care (01) ==
LOC: ED 17:16 → 3A 23:13
PROVIDERS: ADMIT Internal Medicine Geriatric Medicine; ATTEND Internal Medicine
DX: K92.0 Hematemesis (principal); I95.1 Orthostatic hypotension; D62 Acute posthemorrhagic anemia; R55 Syncope and collapse; E03.9 Hypothyroidism, unspecified; K27.9 Peptic ulcer, site unspecified, unspecified as acute or chronic, without hemorrhage or perforation; Z79.899 Other long term (current) drug therapy
CPT/HCPCS: 36415; 36430; 43235; 80048; 80053; 83690; 84703; 85014; 85018; 85025; 85610; 86850; 86900; 86901; 86920; 96361; 96365; 96366; 96375; 96376; 99291; C9113; G0378; J2405; J2704; J2765; J7030; P9016; 85007